=== PATIENT | male | born 1995 | race Caucasian/White ===

== ENCOUNTER 2016-08-02 14:23 | Emergency (ER) | payer OTHER ==
[~2016-08-02] VITALS: Wt 103.5 kg
[2016-08-02 15:18] LABS: ADD SCAN DIFF NO
[2016-08-02 15:21] LABS: BASOPHILS % 0.6 % (0.0-2.0); EOSINOPHILS # 0.1 10^3/ul (0.0-0.5); EOSINOPHILS % 2.8 % (0.0-7.0); HEMOGLOBIN 14.7 g/dl (14.0-18.0); LYMPHOCYTES # 1.3 10^3/ul (0.8-2.9); LYMPHOCYTES % 26.2 % (15.0-51.0); MEAN CORPUSCULAR HEMOGLOBIN 30.9 pg (29.0-33.0); MEAN CORPUSCULAR VOLUME 88.4 fl (82.0-101.0); MONOCYTE # 0.6 10^3/ul (0.3-0.9); MONOCYTES % 12.5 % (0.0-11.0); NEUTROPHIL # 2.9 10^3/ul (1.6-7.5); NEUTROPHILS % 57.7 % (39.0-77.0); PLATELET COUNT 253 10^3/UL (140-415); RED BLOOD COUNT 4.75 10^6/ul (4.70-6.10); RED CELL DISTRIBUTION WIDTH 12.5 % (11.5-14.5)
[2016-08-02 15:37] LABS: ALBUMIN 4.3 g/dl (3.3-4.9)
[2016-08-02 15:38] LABS: POTASSIUM 3.9 mmol/L (3.5-5.1)
[2016-08-02 15:40] LABS: ALBUMIN/GLOBULIN RATIO 1.26; BILIRUBIN,INDIRECT 0.2 mg/dl (0-1.1); BILIRUBIN,TOTAL 0.2 mg/dl (0.2-1.3); CREATININE 0.73 mg/dl (0.61-1.24); TOTAL PROTEIN 7.7 g/dl (6.1-8.1)
[2016-08-02 15:47] LABS: ADD UMIC NO; UR BILIRUBIN (Dip) NEGATIVE (NEGATIVE); UR BLOOD (Dip) NEGATIVE (NEGATIVE); UR CLARITY CLEAR (CLEAR); UR COLOR LT. YELLOW (YELLOW); UR GLUCOSE (Dip) NEGATIVE (NEGATIVE); UR KETONES (Dip) NEGATIVE (NEGATIVE); UR LEUKOCYTE ESTERASE (Dip) NEGATIVE (NEGATIVE); UR NITRITE (Dip) NEGATIVE (NEGATIVE); UR TOTAL PROTEIN (Dip) NEGATIVE (NEGATIVE); UR UROBILINOGEN (Dip) 0.2 E.U./dL (0.1-1.0)
[2016-08-02] MEDS ORDERED: PRED20TA PO (16:09)
[2016-08-02] MEDS ORDERED: predniSONE 20 MG TAB PO ONE (16:30)
[2016-08-02] MEDS ORDERED: CETI10CA PO (16:32)
--- NOTE | 2016-08-19 14:49 | ERD ---
ER Documentation Chief Complaint Date/Time DATE: 08/19/16 TIME: 14:47 Chief Complaint general itchiness no rash for the past 3 days. HPI 20-year-old male complains of generalized itching and mild rash for last 3 days. He denies any known potential allergens. Denies fevers, cough, shortness breath or chest pain. ROS All systems reviewed and are negative except as per history of present illness. Medications Home Meds Active Scripts Cetirizine Hcl* (Zyrtec*) 10 Mg Capsule, 10 MG PO DAILY, #15 TAB.CHEW Prov:CHAO CASTANEDA MD 08/02/16 Prednisone* (Prednisone*) 20 Mg Tab, 60 MG PO DAILY for 4 Days, TAB Start July 26, 2016 Prov:CHAO CASTANEDA MD 08/02/16 PMhx/Soc Medical and Surgical Hx: pt denies Medical Hx, pt denies Surgical Hx History of Surgery: No Anesthesia Reaction: No Hx Neurological Disorder: No Hx Respiratory Disorders: No Hx Cardiac Disorders: No Hx Psychiatric Problems: No Hx Miscellaneous Medical Probl: No Hx Alcohol Use: No Hx Substance Use: Yes Hx Tobacco Use: No Smoking Status: Never smoker Physical Exam Physical Exam Const: [], [id number] per Head: Atraumatic Eyes: Normal Conjunctiva ENT: Normal External Ears, Nose and Mouth. Neck: Full range of motion..~ No meningismus. Resp: Clear to auscultation bilaterally Cardio: Regular rate and rhythm, no murmurs Abd: Soft, non tender, non distended. Normal bowel sounds Skin: No petechiae or rashes. No warmth, induration, vesicles or streaking. Back: No midline or flank tenderness Ext: No cyanosis, or edema Neur: Awake and alert Psych: Normal Mood and Affect Results 24 hrs Laboratory Tests Test 08/02/16 15:10 White Blood Count 5.010^3/ul Red Blood Count 4.7510^6/ul Hemoglobin 14.7g/dl Hematocrit 42.0% Mean Corpuscular Volume 88.4fl Mean Corpuscular Hemoglobin 30.9pg Mean Corpuscular Hemoglobin Concent 35.0g/dl Red Cell Distribution Width 12.5% Platelet Count 71526^3/UL Mean Platelet Volume 10.0fl Neutrophils % 57.7% Lymphocytes % 26.2% Monocytes % 12.5% Eosinophils % 2.8% Basophils % 0.6% Nucleated Red Blood Cells % 0.0/100WBC Neutrophils # 2.910^3/ul Lymphocytes # 1.310^3/ul Monocytes # 0.610^3/ul Eosinophils # 0.110^3/ul Basophils # 0.010^3/ul Nucleated Red Blood Cells # 0.010^3/ul Urine Color LT. YELLOW Urine Clarity CLEAR Urine pH 5.5 Urine Specific [place] <=1.005 Urine Ketones NEGATIVE Urine Nitrite NEGATIVE Urine Bilirubin NEGATIVE Urine Urobilinogen 0.2 E.U./dL Urine Leukocyte Esterase NEGATIVE Urine Hemoglobin NEGATIVE Urine Glucose NEGATIVE% Urine Total Protein NEGATIVE Sodium Level 139mmol/L Potassium Level 3.9mmol/L Chloride Level 110mmol/L Carbon Dioxide Level 23mmol/L Anion Gap 10 Blood Urea Nitrogen 10mg/dl Creatinine 0.73mg/dl Glucose Level 89mg/dl Calcium Level 9.0mg/dl Total Bilirubin 0.2mg/dl Direct Bilirubin 0.00mg/dl Indirect Bilirubin 0.2mg/dl Aspartate Amino Transf (AST/SGOT) 40IU/L Alanine Aminotransferase (ALT/SGPT) 57IU/L Alkaline Phosphatase 71IU/L Total Protein 7.7g/dl Albumin 4.3g/dl Globulin 3.40g/dl Albumin/Globulin Ratio 1.26 Current Medications Medications (Trade) Dose Ordered Sig/Luanne Route PRN Reason Start Time Stop Time Status Last Admin Dose Admin Prednisone (Prednisone) 60 mg ONCE ONCE PO 08/02/16 16:30 08/02/16 16:31 DC 08/02/16 16:29 Procedures/MDM Given the itching of uncertain etiology. CBC and CMP were performed which are normal. Patient has nonspecific sensation itching and mild dermatitis. We treated prednisone and Zyrtec, close observation. Is no evidence of any life- threatening rashes, purpura, anaphylaxis, cellulitis. The patient was stable with no new complaints during the ER course. Clinically, there is no current evidence to suggest meningitis, sepsis, acute abdomen, pneumonia, acute coronary syndrome, pulmonary embolism, or any other emergent condition appearing to require further evaluation or hospitalization. The patient should certainly return for any new or worsening symptoms per the aftercare instructions. They should otherwise follow-up with her primary care doctor for reevaluation this week. Departure Diagnosis: Primary Impression: Itching Condition: Stable Patient Instructions: Dermatitis, Non-Specific Additional Instructions: Likely unspecified allergic reaction. Labs normal today. 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 Recheck for fevers, vomiting, new worsening symptoms. CHAO CASTANEDA MD Aug 19, 2016 14:49
== END 2016-08-02 16:36 | disposition home or self-care (01) ==
LOC: FTE 14:23
DX: L29.9 Pruritus, unspecified (principal)
CPT/HCPCS: 80053; 81003; 85025; J7512; 36415; 99283